=== PATIENT | female | born 1935 | race Caucasian/White ===

== ENCOUNTER 2020-04-22 11:31 | Emergency (ER) | payer MEDICARE ==
[~2020-04-22] VITALS: Ht 160 cm; Wt 70.5 kg
[~2020-04-22 11:31] MED LIST: ASPI-845 PO; ATOR10TA PO; DOCU100C40 PO; FLAX100032 PO; GLUC1CAP33 PO; HYDR-3972 PO; LISI10TA4 PO; METO50TA16 PO; MULT-620 PO; VITA-134 PO
[2020-04-22] MEDS ORDERED: LIDOcaine 5% patch TP STA ×2 (11:47→13:00)
[2020-04-22] MEDS ORDERED: ketorolac trometh. 30mg/ml inj. IM ONE ×2 (11:50→13:00)
[2020-04-22] MEDS ORDERED: cyclobenzaprine 10mg tablet PO ONE (11:50)
--- NOTE | 2020-04-22 12:09 | NUR ---
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
[2020-04-22] MEDS ORDERED: IBUP-1984 PO (12:33)
[2020-04-22] MEDS ORDERED: LIDO700A32 TOP (12:33)
[2020-04-22 12:50] VITALS: BP 171/81
--- NOTE | 2020-04-22 13:00 | NUR ---
Pt having RLE pain and spasms when attempting to sit on side of bed to get to wheelchair. Tho GREGG aware.
== END 2020-04-22 13:40 | disposition home or self-care (01) ==
LOC: ER 11:32
DX: M54.41 Lumbago with sciatica, right side (principal); M79.651 Pain in right thigh; Z79.82 Long term (current) use of aspirin; Z79.899 Other long term (current) drug therapy; X50.1XXA Overexertion from prolonged static or awkward postures, initial encounter; Y93.89 Activity, other specified; Y92.89 Other specified places as the place of occurrence of the external cause; Y99.8 Other external cause status
CPT/HCPCS: 96372; 99284; J1885

== ENCOUNTER 2020-10-28 18:44 | Emergency (ER) | payer MEDICARE ==
[~2020-10-28] VITALS: Ht 162.6 cm; Wt 68.1 kg
[~2020-10-28 18:44] MED LIST changes: +LIDO700A32 TOP; +LISI10TA27 PO; -LISI10TA4 PO
[2020-10-28 19:51] VITALS: BP 155/76
== END 2020-10-28 23:15 | disposition home or self-care (01) ==
LOC: ER 18:45
DX: S22.31XA Fracture of one rib, right side, initial encounter for closed fracture (principal); M79.601 Pain in right arm; M79.602 Pain in left arm; M54.9 Dorsalgia, unspecified; Z79.82 Long term (current) use of aspirin; Z79.899 Other long term (current) drug therapy; Z98.890 Other specified postprocedural states; W01.0XXA Fall on same level from slipping, tripping and stumbling without subsequent striking against object, initial encounter; Y93.89 Activity, other specified; Y92.89 Other specified places as the place of occurrence of the external cause; Y99.8 Other external cause status
CPT/HCPCS: 71045; 71100; 73030; 99284

== ENCOUNTER 2021-05-27 12:35 | Emergency (ER) | payer MEDICARE ==
[~2021-05-27] VITALS: Ht 162.6 cm; Wt 68.2 kg
[2021-05-27 14:04] LABS: BASOPHILS % (AUTO) 0.3 % (0-1); EOSINOPHILS % (AUTO) 0.3 % (0-6); HEMATOCRIT 42.1 % (35.0-45.0); HEMOGLOBIN 14.1 g/dl (12.0-16.0); LYMPHOCYTES # (AUTO) 1.2 X10'3 (1.1-4.8); LYMPHOCYTES % (AUTO) 13.8 % (21-51); MEAN CORPUSCULAR HEMOGLOBIN 32.3 PG (27.0-31.0); MEAN CORPUSCULAR HGB CONC 33.4 g/dL (33.0-36.5); MEAN CORPUSCULAR VOLUME 96.7 FL (78-98); MEAN PLATELET VOLUME 9.1 FL (7.4-10.4); MONOCYTES # (AUTO) 0.5 X10'3 (0-0.9); MONOCYTES % (AUTO) 5.6 % (2-12); NEUTROPHILS # (AUTO) 6.8 X10'3 (1.8-7.7); PLATELET COUNT 224 X10'3 (140-440); RED BLOOD COUNT 4.35 X10'6 (4.20-5.60); RED CELL DISTRIBUTION WIDTH 12.6 % (11.5-14.5); WHITE BLOOD COUNT 8.4 X10'3 (4.5-11.0)
[2021-05-27 14:16] LABS: ALANINE AMINOTRANSFERASE 15 U/L (12-78); ALBUMIN/GLOBULIN RATIO 1.2 (1.1-1.5); ANION GAP 9 (8-16); ASPARTATE AMINO TRANSFERASE 20 U/L (10-37); BILIRUBIN,TOTAL 0.8 MG/DL (0.1-1.0); BLOOD UREA NITROGEN 28 MG/DL (7-18); BUN/CREATININE RATIO 28.9 (6.6-38.0); CALCIUM 9.8 MG/DL (8.5-10.1); CHLORIDE 105 MMOL/L (99-107); CREATININE 0.97 MG/DL (0.40-0.90); GLUCOSE 107 MG/DL (70-104); POTASSIUM 4.3 MMOL/L (3.5-5.1); SODIUM 142 MMOL/L (135-145); TOTAL CARBON DIOXIDE 27.8 MMOL/L (24-32); TOTAL PROTEIN 7.4 G/DL (6.4-8.2); eGFR 55 ML/MIN
[2021-05-27 14:19] LABS: CLARITY,URINE SLIGHTLY CLOUDY (Clear); COLOR,URINE YELLOW (Yellow); GLUCOSE, URINE NEGATIVE (Neg); KETONES,URINE NEGATIVE (Neg); LEUKOCYTE ESTERASE ,URINE NEGATIVE (Neg); NITRITES, URINE NEGATIVE (Neg); OCCULT BLOOD,URINE SMALL (Neg); PH,URINE 5.5 (4.8-8.0); PROTEIN,URINE NEGATIVE (Neg); UA COLLECTION TYPE CLN CATCH MIDSTREAM; UROBILINOGEN,URINE 0.2 E.U/dL (0.2-1.0)
[2021-05-27 14:26] LABS: WBC,URINE 0-4 /HPF (0-4)
[2021-05-27 14:27] LABS: BACTERIA,URINE FEW /HPF (Neg); MUCUS STRANDS FEW /LPF (Neg); SQUAMOUS EPITHELIAL CELL,UR FEW /LPF (FEW); TRANSITIONAL EPI CELLS,URINE FEW /HPF
--- NOTE | 2021-05-27 15:41 | NUR ---
dr. tong at bedside.
--- NOTE | 2021-05-27 16:41 | NUR ---
lab at bedside.
[2021-05-27 17:15] VITALS: BP 158/82
--- NOTE | 2021-05-27 17:25 | NUR ---
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
== END 2021-05-27 17:40 | disposition left against medical advice (07) ==
LOC: ER 12:36
DX: S52.501A Unspecified fracture of the lower end of right radius, initial encounter for closed fracture (principal); R55 Syncope and collapse; R42 Dizziness and giddiness; R51.9 Headache, unspecified; Z79.82 Long term (current) use of aspirin; Z91.018 Allergy to other foods; Z79.899 Other long term (current) drug therapy; X58.XXXA Exposure to other specified factors, initial encounter; Y93.E8 Activity, other personal hygiene; Y92.89 Other specified places as the place of occurrence of the external cause; Y99.8 Other external cause status
CPT/HCPCS: 36415; 70450; 71045; 73110; 80053; 81001; 82948; 84484; 85025; 93005; 99285

== ENCOUNTER 2022-04-17 05:48 | Day surgery (SDC) | payer MEDICARE, OTHER ==
[2022-04-11 15:33] LABS: BASOPHILS % (AUTO) 0.6 % (0-1); EOSINOPHILS # (AUTO) 0.1 X10'3 (0-0.9); EOSINOPHILS % (AUTO) 1.6 % (0-6); LYMPHOCYTES # (AUTO) 1.8 X10'3 (1.1-4.8); LYMPHOCYTES % (AUTO) 29.2 % (21-51); MEAN CORPUSCULAR HEMOGLOBIN 32.1 PG (27.0-31.0); MEAN CORPUSCULAR HGB CONC 33.8 g/dL (33.0-36.5); MEAN CORPUSCULAR VOLUME 94.8 FL (78-98); MEAN PLATELET VOLUME 9.5 FL (7.4-10.4); MONOCYTES # (AUTO) 0.4 X10'3 (0-0.9); MONOCYTES % (AUTO) 6.8 % (2-12); NEUTROPHILS # (AUTO) 3.8 X10'3 (1.8-7.7); NEUTROPHILS % (AUTO) 61.8 % (42-75); PRE OP HEMATOCRIT 41.4 % (35.0-45.0); PRE OP PLATELET COUNT 204 X10'3 (140-440); RED BLOOD COUNT 4.36 X10'6 (4.20-5.60); RED CELL DISTRIBUTION WIDTH 13.1 % (11.5-14.5)
[2022-04-11 15:37] LABS: CLARITY,URINE SLIGHTLY CLOUDY (Clear); COLOR,URINE YELLOW (Yellow); GLUCOSE, URINE NEGATIVE (Neg); KETONES,URINE NEGATIVE (Neg); LEUKOCYTE ESTERASE ,URINE TRACE (Neg); NITRITES, URINE NEGATIVE (Neg); OCCULT BLOOD,URINE TRACE-INTACT (Neg); PROTEIN,URINE NEGATIVE (Neg); UROBILINOGEN,URINE 0.2 E.U/dL (0.2-1.0)
[2022-04-11 15:38] LABS: UA COLLECTION TYPE NON-SPECIFIED
[2022-04-11 15:48] LABS: SQUAMOUS EPITHELIAL CELL,UR FEW /LPF (FEW)
[2022-04-11 15:49] LABS: TRANSITIONAL EPI CELLS,URINE FEW /HPF
[2022-04-11 15:50] LABS: BACTERIA,URINE FEW /HPF (Neg); MUCUS STRANDS NONE SEEN /LPF (Neg); RBC,URINE 0-2 /HPF (0-2); WBC,URINE 0-4 /HPF (0-4)
[2022-04-11 15:55] LABS: ALBUMIN 3.9 G/DL (3.4-5.0); ALKALINE PHOSPHATASE 62 IU/L (46-116); BLOOD UREA NITROGEN 20 MG/DL (7-18); CHLORIDE 106 MMOL/L (99-107); PRE OP ANION GAP 5 (8-16); PRE OP BILIRUB, TOTAL 0.9 MG/DL (0.0-1.0); PRE OP SODIUM 141 MMOL/L (135-145); TOTAL CARBON DIOXIDE 29.7 MMOL/L (24-32); eGFR 53 ML/MIN
[2022-04-11 16:10] LABS: ALBUMIN/GLOBULIN RATIO 1.2 (1.1-1.5); TOTAL PROTEIN 7.1 G/DL (6.4-8.2)
[2022-04-11 16:20] LABS: PRE OP AST 28 U/L (10-37)
[2022-04-11 16:28] LABS: PRE OP GLUCOSE 102 MG/DL (70-104); PRE OP POTASSIUM 4.5 MMOL/L (3.4-5.1)
[~2022-04-17] VITALS: Ht 165.1 cm; Wt 70.9 kg
[2022-04-17] VITALS (14 sets, daily range): BP systolic 147–195; BP diastolic 79–100
[~2022-04-17 05:48] MED LIST changes: -ATOR10TA PO; -DOCU100C40 PO; +DOCUMENT DATE & TIME OF BETA-BLOCKER PO ONE; -FLAX100032 PO; -GLUC1CAP33 PO; -HYDR-3972 PO; -LIDO700A32 TOP; -LISI10TA27 PO; +METO25TA6; -METO50TA16 PO; -MULT-620 PO; -VITA-134 PO; +ceFAZolin/D5W- 1GM premix 50 ML IV ONE; +famotidine 20mg tablet PO ONE; +ringers solution, lacted 1,000 ML IV SCH
[2022-04-17] MEDS ORDERED: glycopyrrolate 0.2mg/ml inj ONE (07:25)
[2022-04-17] MEDS ORDERED: dexamethasone sod phosphate 10mg/ml inj ONE (07:25)
[2022-04-17] MEDS ORDERED: sevoflurane 250ml liquid IH ONE (07:25)
[2022-04-17] MEDS ORDERED: neostigmine methylsulfate 1 MG/ML 10ml vial ONE (07:25)
[2022-04-17] MEDS ORDERED: rocuronium 10mg/ml inj IV ONE (07:25)
[2022-04-17] MEDS ORDERED: ondansetron/PF 4mg/2ml inj ONE (07:25)
[2022-04-17] MEDS ORDERED: FENTANYL CITRATE/PF 50 MCG/1 ML VIAL ONE (07:31)
[2022-04-17] MEDS ORDERED: midazolam 1 mg/ML 2ml injection ONE (07:32)
[2022-04-17] MEDS ORDERED: propofol inj 20 ML IV ONE (07:33)
[2022-04-17] MEDS ORDERED: LIDOcaine 2% (20mg/ml) 5ml vial ONE (07:33)
[2022-04-17] MEDS ORDERED: morphine 2 MG/ML inj. syringe IV PRN (08:10)
[2022-04-17] MEDS ORDERED: ringers solution, lacted 1,000 ML IV SCH (08:10)
[2022-04-17] MEDS ORDERED: proCHLORperazine 10 MG/2 ml inj IV PRN (08:10)
[2022-04-17] MEDS ORDERED: meperidine/PF 25mg/ml syringe IV PRN ×3 (08:10)
[2022-04-17] MEDS ORDERED: morphine 4 MG/ML inj SYRINge IV PRN (08:10)
[2022-04-17] MEDS ORDERED: ondansetron/PF 4mg/2ml inj IV PRN (08:10)
--- NOTE | 2022-04-17 08:51 | NUR ---
Received from OR via valentino , accompanied by Anesthesiologist dr brown and report given by Anesthesiolgist. PT PRESNS WITH PIC 210G RIGHT WRIST, ELDER CATHETER IN PLACE, VSS. Addendum: 04/17/22 at 0916 by Ling Louie RN, RN Amended: Links added.
[2022-04-17] MEDS ORDERED: labetalol 20mg/4ml (5mg/ml) syringe IV PRN (10:10)
--- NOTE | 2022-04-17 10:51 | NUR ---
I HAVE REVIEWED D/C INSTRUCTIONS WITH PATIENT AND THEY HAVE VERBALIZED UNDERSTANDING OF INSTRUCTIONS. PATIENT D/C HOME WITH ALL BELONGINGS AND FAMILY GAVE TRANSPORT Addendum: 04/17/22 at 1100 by Ling Louie RN, RN Amended: Links added.
--- NOTE | 2022-04-17 10:51 | NUR ---
PT GIVEN ELDER CATH CARE INSTRUCTIONS WITH EXTRA GLOVES AND SURE STEP ELDER CARE WIPES. PT ADVISED FC TO COME OUT IN [address] LOCKETT OFFICE. PTHAD 650MLS OUTPUT IN ELDER CATH. Addendum: 04/17/22 at 1103 by Ling Louie RN, RN Amended: Links added.
== END 2022-04-17 10:51 | disposition home or self-care (01) ==
LOC: PAS 05:48
PROVIDERS: ATTEND Student in an Organized Health Care Education/Training Program
DX: C67.8 Malignant neoplasm of overlapping sites of bladder (principal); Z79.899 Other long term (current) drug therapy; Z98.890 Other specified postprocedural states; Z79.82 Long term (current) use of aspirin
CPT/HCPCS: 36415; 52234; 80053; 81001; 82948; 85025; 87088; 93005; J0690; J1100; J2250; J2405; J2704; J2710; J3010; J3490; J7120; Z7506; Z7508; Z7512

== ENCOUNTER 2022-10-28 08:32 | Day surgery (SDC) | payer MEDICARE, OTHER ==
[~2022-10-28] VITALS: Ht 162.6 cm; Wt 68.3 kg
[2022-10-28] VITALS (17 sets, daily range): BP systolic 120–194; BP diastolic 60–111
[~2022-10-28 08:32] MED LIST changes: -DOCUMENT DATE & TIME OF BETA-BLOCKER PO ONE; -ceFAZolin/D5W- 1GM premix 50 ML IV ONE; -famotidine 20mg tablet PO ONE; -ringers solution, lacted 1,000 ML IV SCH
[2022-10-28] MEDS ORDERED: ASPI-1265 PO (09:02)
[2022-10-28 09:24] LABS: BASOPHILS % (AUTO) 0.5 % (0-1); EOSINOPHILS # (AUTO) 0.1 X10'3 (0-0.9); EOSINOPHILS % (AUTO) 1.2 % (0-6); HEMOGLOBIN 12.4 g/dl (12.0-16.0); LYMPHOCYTES # (AUTO) 1.4 X10'3 (1.1-4.8); LYMPHOCYTES % (AUTO) 19.9 % (21-51); MEAN CORPUSCULAR HEMOGLOBIN 30.7 PG (27.0-31.0); MEAN CORPUSCULAR HGB CONC 32.6 g/dL (33.0-36.5); MEAN CORPUSCULAR VOLUME 94.3 FL (78-98); MEAN PLATELET VOLUME 8.5 FL (7.4-10.4); MONOCYTES # (AUTO) 0.5 X10'3 (0-0.9); MONOCYTES % (AUTO) 7.5 % (2-12); NEUTROPHILS # (AUTO) 5.1 X10'3 (1.8-7.7); NEUTROPHILS % (AUTO) 70.9 % (42-75); PLATELET COUNT 249 X10'3 (140-440); RED BLOOD COUNT 4.03 X10'6 (4.20-5.60); RED CELL DISTRIBUTION WIDTH 13.5 % (11.5-14.5); WHITE BLOOD COUNT 7.2 X10'3 (4.5-11.0)
[2022-10-28] MEDS ORDERED: midazolam 1 mg/ML 2ml injection ONE (10:39)
[2022-10-28] MEDS ORDERED: gelatin sponge, absorbable (Gelfoam 12-7MM) sponge TP ONE (10:39)
[2022-10-28] MEDS ORDERED: fentaNYL/PF 50MCG/1 ML 2ML syringe ONE (10:39)
[2022-10-28] MEDS ORDERED: HYDROcodone/acetaminophen 5mg/325mg tablet PO PRN ×2 (11:45)
== END 2022-10-28 15:00 | disposition home or self-care (01) ==
LOC: SSTAY O 08:32
PROVIDERS: ATTEND Radiology Vascular & Interventional Radiology
DX: R91.1 Solitary pulmonary nodule (principal); C78.01 Secondary malignant neoplasm of right lung; C51.9 Malignant neoplasm of vulva, unspecified; J44.9 Chronic obstructive pulmonary disease, unspecified; Z79.82 Long term (current) use of aspirin; Z79.899 Other long term (current) drug therapy; Z95.1 Presence of aortocoronary bypass graft; Z98.890 Other specified postprocedural states; Z72.89 Other problems related to lifestyle
CPT/HCPCS: 32408; 36415; 71045; 85025; 85610; 99152; 99153; C1769; J2250; J3010; J7030; 77012; A4421; A4615; A6258

== ENCOUNTER 2022-11-06 15:30 | Inpatient (IN) | payer MEDICARE, OTHER ==
[~2022-11-06] VITALS: Ht 162.6 cm; Wt 63.6 kg
[2022-11-06 00:15] VITALS: BP 91/49; PULSE 83; TEMP 95.8; O2SAT 93
[~2022-11-06 15:30] MED LIST changes: +ASPI-1265 PO; -ASPI-845 PO
[2022-11-06] MEDS ORDERED: normal saline 1000ML IV soln IVB ONE (15:55)
[2022-11-06] MEDS ORDERED: morphine 4 MG/ML inj SYRINge IV ONE ×3 (15:55→17:20)
[2022-11-06] MEDS ORDERED: ondansetron/PF 4mg/2ml inj IV ONE (15:55)
[2022-11-06 17:00] LABS: BASOPHILS % (AUTO) 0.3 % (0-1); EOSINOPHILS # (AUTO) 0.1 X10'3 (0-0.9); EOSINOPHILS % (AUTO) 0.6 % (0-6); HEMATOCRIT 35.8 % (35.0-45.0); HEMOGLOBIN 11.8 g/dl (12.0-16.0); LYMPHOCYTES # (AUTO) 0.6 X10'3 (1.1-4.8); LYMPHOCYTES % (AUTO) 5.4 % (21-51); MEAN CORPUSCULAR HEMOGLOBIN 31.1 PG (27.0-31.0); MEAN CORPUSCULAR VOLUME 94.3 FL (78-98); MEAN PLATELET VOLUME 8.8 FL (7.4-10.4); MONOCYTES % (AUTO) 0.5 % (2-12); NEUTROPHILS # (AUTO) 9.4 X10'3 (1.8-7.7); NEUTROPHILS % (AUTO) 93.2 % (42-75); PLATELET COUNT 234 X10'3 (140-440); RED BLOOD COUNT 3.79 X10'6 (4.20-5.60); RED CELL DISTRIBUTION WIDTH 13.6 % (11.5-14.5); WHITE BLOOD COUNT 10.1 X10'3 (4.5-11.0)
[2022-11-06 17:17] LABS: ALANINE AMINOTRANSFERASE 12 U/L (12-78); ALBUMIN 3.4 G/DL (3.4-5.0); ALKALINE PHOSPHATASE 66 IU/L (46-116); ANION GAP 10 (8-16); ASPARTATE AMINO TRANSFERASE 25 U/L (10-37); BILIRUBIN,TOTAL 0.8 MG/DL (0.1-1.0); BLOOD UREA NITROGEN 23 MG/DL (7-18); BUN/CREATININE RATIO 18.9 (10.0-20.0); CHLORIDE 105 MMOL/L (99-107); CREATININE 1.22 MG/DL (0.40-0.90); GLUCOSE 118 MG/DL (70-104); LIPASE 81 U/L (73-393); POTASSIUM 4.5 MMOL/L (3.5-5.1); SODIUM 139 MMOL/L (135-145); TOTAL CARBON DIOXIDE 24.1 MMOL/L (24-32); TOTAL PROTEIN 6.8 G/DL (6.4-8.2); eGFR 42 ML/MIN
[2022-11-06] MEDS ORDERED: iohexol 300mg/ml 100ml inj. ONE (17:21)
--- NOTE | 2022-11-06 18:24 | NUR ---
ASSUMED CARE FROM CATARINA MORGAN
--- NOTE | 2022-11-06 18:50 | NUR ---
DR DOUGLAS NOTIFIED OF HIGH HR AND TEMP FOR POSSIBLE SEPSIS. ALL BLANKETS REMOVED EXECPT 1 SHEET.
[2022-11-06] MEDS ORDERED: piperacillin/tazo 3.375gm/50ml 50 ML IV ONE (19:00)
[2022-11-06 19:10] LABS: CLARITY,URINE CLOUDY (Clear); COLOR,URINE STRAW (Yellow); GLUCOSE, URINE NEGATIVE (Neg); KETONES,URINE TRACE mg/dl (Neg); LEUKOCYTE ESTERASE ,URINE SMALL (Neg); NITRITES, URINE POSITIVE (Neg); OCCULT BLOOD,URINE LARGE (Neg); PH,URINE 6.5 (4.8-8.0); PROTEIN,URINE TRACE mg/dl (Neg); UROBILINOGEN,URINE 0.2 E.U/dL (0.2-1.0)
[2022-11-06 19:13] LABS: UA COLLECTION TYPE FOLEY CATH
[2022-11-06 19:21] LABS: SQUAMOUS EPITHELIAL CELL,UR FEW /LPF (FEW)
[2022-11-06 19:22] LABS: BACTERIA,URINE 3+ /HPF (Neg); RBC,URINE TNTC /HPF (0-2); WBC,URINE 50-100 /HPF (0-4)
[2022-11-06 19:23] LABS: TRANSITIONAL EPI CELLS,URINE FEW /HPF
[2022-11-06] MEDS ORDERED: acetaminophen 325mg tablet PO ONE (19:25)
[2022-11-06] MEDS ORDERED: acetaminophen 325mg tablet PO PRN (20:10)
[2022-11-06] MEDS ORDERED: ondansetron/PF 4mg/2ml inj IV PRN (20:10)
[2022-11-06] MEDS ORDERED: magnesium Cl slow-release 64mg tablet PO PRN (20:10)
[2022-11-06] MEDS ORDERED: magnesium 2GM in 50ml NS 50 ML IV PRN (20:10)
[2022-11-06] MEDS ORDERED: magnesium 4gm in 100ml NS 100 ML IV PRN (20:10)
[2022-11-06] MEDS ORDERED: potassium Cl 20 mEq SR tablet PO PRN ×2 (20:10)
[2022-11-06] MEDS ORDERED: potassium Cl 40MEQ/1/2NS 520ml 520 ML IV PRN (20:10)
[2022-11-06] MEDS: normal saline 1000ml 1,000 ML IV SCH (20:32)
[2022-11-06] MEDS: CefTRIAXone/D5W-Rocephin 1gm 50 ML IV SCH (20:32)
[2022-11-06] MEDS ORDERED: normal saline 500ml IV soln 500 ML IV ONE (23:15)
--- NOTE | 2022-11-06 23:22 | NUR ---
DR GREEN AT BEDSIDE, BP LOW, BOLUS RUNNING. GAVE REPORT TO REGULATORY LEADER AND WILL SEND UPSTAIRS AFTER FLUID BOLUS COMPLETE TO RECHECK BP MAP IS BELOW 65.
[2022-11-07] VITALS (10 sets, daily range): BP systolic 89–146; BP diastolic 46–87; PULSE 74–89; RESP 14–18; TEMP 96.3–98.9; O2SAT 90–98
--- NOTE | 2022-11-07 00:05 | NUR ---
RECIEVED PT REPORT FROM PETE ER NURSE WITH C/O ABDOMINAL PAIN, TRANSFER TO BED AND MADE COMFORTABLE.
[2022-11-07] MEDS: normal saline 1000ml 1,000 ML IV SCH ×3 (02:02→21:21)
--- NOTE | 2022-11-07 06:25 | NUR ---
Problems reprioritized. Patient report given, questions answered & plan of care reviewed with CATARINA OVALLES.
--- NOTE | 2022-11-07 06:27 | NUR ---
Patient in room U 3025. I have received report from Rebeca and had the opportunity to ask questions and assume patient care. Addendum: 11/07/22 at 0628 by Td Leal RN Amended: Links added.
[2022-11-07 06:49] LABS: EOSINOPHILS % (AUTO) 0 % (0-6); HEMOGLOBIN 11.3 g/dl (12.0-16.0); LYMPHOCYTES # (AUTO) 0.4 X10'3 (1.1-4.8); MONOCYTES # (AUTO) 0.3 X10'3 (0-0.9)
[2022-11-07 06:52] LABS: BASOPHILS % (AUTO) 0 % (0-1); HEMATOCRIT 34.7 % (35.0-45.0); LYMPHOCYTES % (AUTO) 2.1 % (21-51); MEAN CORPUSCULAR HEMOGLOBIN 31.1 PG (27.0-31.0); MEAN CORPUSCULAR HGB CONC 32.6 g/dL (33.0-36.5); MEAN CORPUSCULAR VOLUME 95.4 FL (78-98); MEAN PLATELET VOLUME 8.7 FL (7.4-10.4); MONOCYTES % (AUTO) 1.7 % (2-12); NEUTROPHILS # (AUTO) 18.2 X10'3 (1.8-7.7); NEUTROPHILS % (AUTO) 96.2 % (42-75); PLATELET COUNT 138 X10'3 (140-440); RED BLOOD COUNT 3.64 X10'6 (4.20-5.60); WHITE BLOOD COUNT 18.9 X10'3 (4.5-11.0)
[2022-11-07 06:56] LABS: ALBUMIN 2.6 G/DL (3.4-5.0); ANION GAP 14 (8-16); BLOOD UREA NITROGEN 26 MG/DL (7-18); BUN/CREATININE RATIO 12.1 (10.0-20.0); CALCIUM 8.4 MG/DL (8.5-10.1); CHLORIDE 104 MMOL/L (99-107); CREATININE 2.15 MG/DL (0.40-0.90); GLUCOSE 121 MG/DL (70-104); MAGNESIUM 1.6 MG/DL (1.5-2.4); POTASSIUM 4.1 MMOL/L (3.5-5.1); SODIUM 140 MMOL/L (135-145); TOTAL CARBON DIOXIDE 22.5 MMOL/L (24-32); eGFR 22 ML/MIN
[2022-11-07] MEDS: K and/or MAG REPLACEMENT MC SCH ×2 (07:08→19:25)
[2022-11-07] MEDS: CefTRIAXone/D5W-Rocephin 1gm 50 ML IV SCH (07:15)
[2022-11-07] MEDS: aspirin 81mg tab.chew PO SCH (07:15)
[2022-11-07 07:29] LABS: PLATELET ESTIMATE DECREASED; TOTAL CELLS COUNTED 100
[2022-11-07 07:30] LABS: ELLIPTOCYTES 1+
[2022-11-07] MEDS ORDERED: non-formulary drug (Metoprolol Tartrate 1 TAB) SCH (08:00)
[2022-11-07] MEDS ORDERED: metoprolol tartrate 25mg tablet PO SCH (08:00)
--- NOTE | 2022-11-07 18:30 | NUR ---
Patient in room PCU 3025. I have received report from JOSR ELMORE and had the opportunity to ask questions and assume patient care.
--- NOTE | 2022-11-07 18:32 | NUR ---
Problems reprioritized. Patient report given, questions answered & plan of care reviewed with Prudence. Addendum: 11/07/22 at 1832 by Td Leal RN Amended: Links added.
[2022-11-08] VITALS (10 sets, daily range): BP systolic 113–157; BP diastolic 59–111; PULSE 64–83; RESP 12–18; TEMP 97.6–98.3; O2SAT 91–99
[2022-11-08] MEDS: normal saline 1000ml 1,000 ML IV SCH ×2 (05:33→17:26)
--- NOTE | 2022-11-08 06:09 | NUR ---
Patient in room U 3025. I have received report from Lorenza and had the opportunity to ask questions and assume patient care. Addendum: 11/08/22 at 0609 by Td Leal RN Amended: Links added.
--- NOTE | 2022-11-08 06:25 | NUR ---
Problems reprioritized. Patient report given, questions answered & plan of care reviewed with JOSR RN.
[2022-11-08 06:35] LABS: EOSINOPHILS # (AUTO) 0.1 X10'3 (0-0.9); HEMATOCRIT 31.3 % (35.0-45.0); HEMOGLOBIN 10.3 g/dl (12.0-16.0); LYMPHOCYTES # (AUTO) 0.5 X10'3 (1.1-4.8); MEAN CORPUSCULAR HGB CONC 32.9 g/dL (33.0-36.5); MONOCYTES # (AUTO) 0.7 X10'3 (0-0.9); MONOCYTES % (AUTO) 3.1 % (2-12); RED BLOOD COUNT 3.31 X10'6 (4.20-5.60)
[2022-11-08 06:37] LABS: BASOPHILS % (AUTO) 0.1 % (0-1); EOSINOPHILS % (AUTO) 0.3 % (0-6); LYMPHOCYTES % (AUTO) 2.2 % (21-51); MEAN CORPUSCULAR HEMOGLOBIN 31.2 PG (27.0-31.0); MEAN CORPUSCULAR VOLUME 94.7 FL (78-98); MEAN PLATELET VOLUME 9.4 FL (7.4-10.4); NEUTROPHILS % (AUTO) 94.3 % (42-75); PLATELET COUNT 119 X10'3 (140-440); RED CELL DISTRIBUTION WIDTH 14.1 % (11.5-14.5); WHITE BLOOD COUNT 23.3 X10'3 (4.5-11.0)
[2022-11-08 06:44] LABS: ALBUMIN 2.3 G/DL (3.4-5.0); ANION GAP 13 (8-16); BLOOD UREA NITROGEN 26 MG/DL (7-18); BUN/CREATININE RATIO 19.3 (10.0-20.0); CALCIUM 8.6 MG/DL (8.5-10.1); CHLORIDE 108 MMOL/L (99-107); CREATININE 1.35 MG/DL (0.40-0.90); GLUCOSE 108 MG/DL (70-104); MAGNESIUM 1.9 MG/DL (1.5-2.4); SODIUM 141 MMOL/L (135-145); TOTAL CARBON DIOXIDE 20.1 MMOL/L (24-32); eGFR 37 ML/MIN
[2022-11-08] MEDS: K and/or MAG REPLACEMENT MC SCH ×2 (06:59→20:00)
[2022-11-08 07:23] LABS: PLATELET ESTIMATE DECREASED; TOTAL CELLS COUNTED 100
[2022-11-08] MEDS: CefTRIAXone 2gm/D5W 50ml BAG 50 ML IV SCH (07:30)
[2022-11-08] MEDS: aspirin 81mg tab.chew PO SCH (07:30)
--- NOTE | 2022-11-08 09:49 | NUR ---
Pt fell from recliner chair. Tabs had been on, did not go off until in process of fall. Denies injuries, no signs of injury. made aware
--- NOTE | 2022-11-08 09:49 | NUR ---
PAGER ID: [phone] MESSAGE: [id number] a fall, did not hit head, no apparent injuries. Has been gradually getting more confused from around 1700 last night-Td
--- NOTE | 2022-11-08 13:04 | NUR ---
Nutrition consult: Pt admit for sepsis and left side pyelonephritis with UTI. Currently on a heart healthy diet and eating fairly well for age, documented with average 56% PO intake though given increased protein needs d/t sepsis average PO intake is meeting 78% estimated energy needs and 57% estimated protein needs. Recommend Ensure Enlive BID to assist with meeting estimated nutrient needs, to be sent upon physician approval in EMR. IF pt continues with current average meal intake and with average 90% PO intake of ONS BID this will meet 100% of patient's estimated nutrient needs. Noted pt documented to be A/O x 3 and confused this morning, pt may benefit from assistance with meals. LBM 11/08 per EMR. Will continue to follow and monitor need for further nutrition intervention. Recommendations: 1) Liberalize to regular diet given geriatric age 2) Ensure Enlive BIDBD, pending physician approval in EMR 3) Monitor need for meal assistance given confusion 4) Bowel care PRN 5) Scaled weight this admit; subsequent weekly scaled weights Addendum: 11/08/22 at [address] Amended: Links added.
[2022-11-08 15:36] LABS: OCCULT BLOOD STOOL NEGATIVE (Neg)
[2022-11-08] MEDS: lactose-reduced food (Ensure Enlive) - 237ml bottle PO SCH (17:30)
--- NOTE | 2022-11-08 18:30 | NUR ---
Patient in room PCU 3025. I have received report from masr ELMORE and had the opportunity to ask questions and assume patient care.
[2022-11-09] VITALS (7 sets, daily range): BP systolic 151–171; BP diastolic 69–92; PULSE 56–79; RESP 16–21; TEMP 97–98.1; O2SAT 92–95
[2022-11-09] MEDS: normal saline 1000ml 1,000 ML IV SCH ×2 (02:38→21:17)
--- NOTE | 2022-11-09 03:40 | NUR ---
Student documentation: I have reviewed and agree with assessment performed and documented by PEDRO Green[].
--- NOTE | 2022-11-09 06:21 | NUR ---
Problems reprioritized. Patient report given, questions answered & plan of care reviewed with shaheen underwood.
[2022-11-09 06:28] LABS: BASOPHILS % (AUTO) 0.2 % (0-1); EOSINOPHILS # (AUTO) 0.6 X10'3 (0-0.9); EOSINOPHILS % (AUTO) 2.1 % (0-6); HEMATOCRIT 32.3 % (35.0-45.0); HEMOGLOBIN 10.7 g/dl (12.0-16.0); LYMPHOCYTES % (AUTO) 3.4 % (21-51); MEAN CORPUSCULAR HEMOGLOBIN 31.1 PG (27.0-31.0); MEAN CORPUSCULAR HGB CONC 33.2 g/dL (33.0-36.5); MEAN CORPUSCULAR VOLUME 93.8 FL (78-98); MONOCYTES # (AUTO) 0.6 X10'3 (0-0.9); NEUTROPHILS % (AUTO) 92.3 % (42-75); PLATELET COUNT 119 X10'3 (140-440); RED BLOOD COUNT 3.44 X10'6 (4.20-5.60); RED CELL DISTRIBUTION WIDTH 14.3 % (11.5-14.5)
[2022-11-09 06:41] LABS: ALBUMIN 2.2 G/DL (3.4-5.0); ANION GAP 11 (8-16); BLOOD UREA NITROGEN 19 MG/DL (7-18); BUN/CREATININE RATIO 20.2 (10.0-20.0); CALCIUM 8.7 MG/DL (8.5-10.1); CHLORIDE 108 MMOL/L (99-107); CREATININE 0.94 MG/DL (0.40-0.90); GLUCOSE 102 MG/DL (70-104); MAGNESIUM 1.8 MG/DL (1.5-2.4); POTASSIUM 3.5 MMOL/L (3.5-5.1); SODIUM 139 MMOL/L (135-145); TOTAL CARBON DIOXIDE 19.6 MMOL/L (24-32); eGFR 56 ML/MIN
[2022-11-09 06:44] LABS: WHITE BLOOD COUNT 30.3 X10'3 (4.5-11.0)
--- NOTE | 2022-11-09 06:54 | NUR ---
Patient in room PCU 3025. I have received report from [facility] and had the opportunity to ask questions and assume patient care.
[2022-11-09] MEDS: lactose-reduced food (Ensure Enlive) - 237ml bottle PO SCH ×2 (07:30→19:40)
--- NOTE | 2022-11-09 07:30 | NUR ---
Sent to Dr Penn -[id number] [facility] Critical Lab Value WBC 30.3 Natasha [phone]
[2022-11-09 07:39] LABS: PLATELET ESTIMATE DECREASED; TOTAL CELLS COUNTED 100
[2022-11-09 07:40] LABS: BURR CELLS 1+; SCHISTOCYTES FEW
[2022-11-09] MEDS: K and/or MAG REPLACEMENT MC SCH ×2 (08:00→20:00)
[2022-11-09] MEDS: CefTRIAXone 2gm/D5W 50ml BAG 50 ML IV SCH (08:29)
[2022-11-09] MEDS: aspirin 81mg tab.chew PO SCH (08:49)
--- NOTE | 2022-11-09 17:09 | NUR ---
AGREE WITH WOUND CARE PHYSICIAN AM ASSESSMENT
--- NOTE | 2022-11-09 18:14 | NUR ---
Problems reprioritized. Patient report given, questions answered & plan of care reviewed with Clau ELMORE.
[2022-11-09] MEDS ORDERED: amLODIPine 5mg tablet PO ONE (18:45)
[2022-11-10] VITALS (8 sets, daily range): BP systolic 144–173; BP diastolic 68–84; PULSE 62–76; RESP 16–21; TEMP 97.6–98.1; O2SAT 94–99
[2022-11-10 06:02] LABS: BASOPHILS % (AUTO) 0.1 % (0-1); EOSINOPHILS # (AUTO) 0.3 X10'3 (0-0.9); EOSINOPHILS % (AUTO) 1.5 % (0-6); HEMOGLOBIN 11.3 g/dl (12.0-16.0); LYMPHOCYTES # (AUTO) 1.1 X10'3 (1.1-4.8); LYMPHOCYTES % (AUTO) 5.3 % (21-51); MEAN CORPUSCULAR HGB CONC 33.2 g/dL (33.0-36.5); MEAN CORPUSCULAR VOLUME 93.2 FL (78-98); MEAN PLATELET VOLUME 9.9 FL (7.4-10.4); MONOCYTES # (AUTO) 0.9 X10'3 (0-0.9); MONOCYTES % (AUTO) 4.4 % (2-12); NEUTROPHILS # (AUTO) 18.9 X10'3 (1.8-7.7); NEUTROPHILS % (AUTO) 88.7 % (42-75); PLATELET COUNT 128 X10'3 (140-440); RED BLOOD COUNT 3.65 X10'6 (4.20-5.60); RED CELL DISTRIBUTION WIDTH 14.5 % (11.5-14.5); WHITE BLOOD COUNT 21.3 X10'3 (4.5-11.0)
--- NOTE | 2022-11-10 06:08 | NUR ---
Patient in room PCU 3025. I have received report from Clau ELMORE and had the opportunity to ask questions and assume patient care.
[2022-11-10 06:11] LABS: ALBUMIN 2.1 G/DL (3.4-5.0); ANION GAP 11 (8-16); BLOOD UREA NITROGEN 13 MG/DL (7-18); BUN/CREATININE RATIO 17.8 (10.0-20.0); C-REACTIVE PROTEIN 10.56 MG/DL (0.0-0.5); CHLORIDE 110 MMOL/L (99-107); CREATININE 0.73 MG/DL (0.40-0.90); GLUCOSE 85 MG/DL (70-104); MAGNESIUM 1.5 MG/DL (1.5-2.4); POTASSIUM 3.2 MMOL/L (3.5-5.1); SODIUM 142 MMOL/L (135-145); TOTAL CARBON DIOXIDE 21.2 MMOL/L (24-32); eGFR 76 ML/MIN
[2022-11-10 06:59] LABS: CALCIUM 8.4 MG/DL (8.5-10.1)
[2022-11-10] MEDS: CefTRIAXone 2gm/D5W 50ml BAG 50 ML IV SCH (07:19)
[2022-11-10 07:59] LABS: PLATELET ESTIMATE DECREASED; TOTAL CELLS COUNTED 100
[2022-11-10] MEDS ORDERED: amLODIPine 5mg tablet PO SCH (08:00)
[2022-11-10] MEDS: K and/or MAG REPLACEMENT MC SCH ×2 (08:00→20:00)
[2022-11-10] MEDS: lactose-reduced food (Ensure Enlive) - 237ml bottle PO SCH ×2 (08:38→17:46)
[2022-11-10] MEDS: aspirin 81mg tab.chew PO SCH (08:39)
[2022-11-10] MEDS: normal saline 1000ml 1,000 ML IV SCH ×2 (08:40→18:54)
[2022-11-10] MEDS ORDERED: potassium Cl 20 mEq SR tablet PO PRN (09:30)
[2022-11-10] MEDS ORDERED: magnesium Cl slow-release 64mg tablet PO PRN (09:30)
[2022-11-10] MEDS: potassium Cl 20 mEq SR tablet PO PRN ×3 (10:12→18:55)
--- NOTE | 2022-11-10 11:25 | NUR ---
AGREE WITH CLOTH GRADER AM ASSESSMENT
--- NOTE | 2022-11-10 18:10 | NUR ---
Problems reprioritized. Patient report given, questions answered & plan of care reviewed with Juice.
[2022-11-10] MEDS ORDERED: hydrALAZINE 20mg/ml inj. IV PRN (19:50)
[2022-11-10] MEDS ORDERED: enoxaparin 40mg/0.4ml syringe SUBCUT SCH (20:00)
[2022-11-10] MEDS: metoprolol tartrate 12.5mg (1/2 tablet) PO SCH (20:00)
[2022-11-11 02:00] VITALS: BP 169/71; PULSE 68; RESP 17; TEMP 98.2; O2SAT 97
[2022-11-11 06:00] VITALS: BP 181/92; PULSE 76; RESP 16; TEMP 97.3; O2SAT 96
--- NOTE | 2022-11-11 06:30 | NUR ---
Patient in room PCU 3025. I have received report from janet ELMORE and had the opportunity to ask questions and assume patient care.
[2022-11-11 07:05] LABS: BASOPHILS # (AUTO) 0.1 X10'3 (0-0.2); BASOPHILS % (AUTO) 0.8 % (0-1); EOSINOPHILS # (AUTO) 0.4 X10'3 (0-0.9); HEMATOCRIT 36.1 % (35.0-45.0); LYMPHOCYTES # (AUTO) 1.4 X10'3 (1.1-4.8); LYMPHOCYTES % (AUTO) 14.9 % (21-51); MEAN CORPUSCULAR HEMOGLOBIN 30.9 PG (27.0-31.0); MEAN CORPUSCULAR HGB CONC 33.3 g/dL (33.0-36.5); MEAN CORPUSCULAR VOLUME 92.6 FL (78-98); MEAN PLATELET VOLUME 9.5 FL (7.4-10.4); MONOCYTES % (AUTO) 10.7 % (2-12); NEUTROPHILS # (AUTO) 6.6 X10'3 (1.8-7.7); NEUTROPHILS % (AUTO) 69.6 % (42-75); PLATELET COUNT 164 X10'3 (140-440); RED CELL DISTRIBUTION WIDTH 14.4 % (11.5-14.5); WHITE BLOOD COUNT 9.5 X10'3 (4.5-11.0)
[2022-11-11 07:20] LABS: ALBUMIN 2.3 G/DL (3.4-5.0); ANION GAP 10 (8-16); BLOOD UREA NITROGEN 13 MG/DL (7-18); CALCIUM 8.9 MG/DL (8.5-10.1); CHLORIDE 108 MMOL/L (99-107); CREATININE 0.81 MG/DL (0.40-0.90); GLUCOSE 91 MG/DL (70-104); POTASSIUM 3.8 MMOL/L (3.5-5.1); SODIUM 141 MMOL/L (135-145); TOTAL CARBON DIOXIDE 23.1 MMOL/L (24-32); eGFR 67 ML/MIN
[2022-11-11] MEDS: lactose-reduced food (Ensure Enlive) - 237ml bottle PO SCH (07:30)
[2022-11-11] MEDS: CefTRIAXone 2gm/D5W 50ml BAG 50 ML IV SCH (07:59)
[2022-11-11] MEDS: K and/or MAG REPLACEMENT MC SCH (08:00)
[2022-11-11] MEDS ORDERED: amLODIPine 5mg tablet PO SCH (08:00)
[2022-11-11] MEDS: metoprolol tartrate 12.5mg (1/2 tablet) PO SCH (08:09)
[2022-11-11] MEDS: aspirin 81mg tab.chew PO SCH (08:09)
[2022-11-11 08:14] LABS: TOTAL CELLS COUNTED 100
[2022-11-11 08:19] LABS: PLATELET ESTIMATE NORMAL
[2022-11-11 08:20] LABS: BURR CELLS FEW; ELLIPTOCYTES FEW; SCHISTOCYTES FEW
[2022-11-11] MEDS ORDERED: AMLO10TA PO (11:18)
[2022-11-11] MEDS ORDERED: LEVO750T68 PO (11:18)
[2022-11-11 12:36] VITALS: BP 165/78; PULSE 76; RESP 17; TEMP 98; O2SAT 96
--- NOTE | 2022-11-11 16:28 | NUR ---
PATIENT DISCHARGE HOME. LEFT ACCOMPANIED BY AND DAUGHTER. EDUCATION PROVIDED TO PATIENT REGARDING PROPPER CATHETER CARE.IV REMOVED. DRESSING CDI. ALL PATIENT BELONGINGS WITH PATIENT.
== END 2022-11-11 14:06 | disposition home health service (06) | DRG 871 ==
LOC: ER 15:30 → ED HOLD 20:19 → PCU 3S 23:36
PROVIDERS: ADMIT Internal Medicine; ATTEND Family Medicine
PROC: BW211ZZ Computerized Tomography (CT Scan) of Abdomen and Pelvis using Low Osmolar Contrast (ICD-10-PCS; principal; 2022-11-06)
DX: A41.51 Sepsis due to Escherichia coli [E. coli] (principal); G93.41 Metabolic encephalopathy; N17.0 Acute kidney failure with tubular necrosis; N13.6 Pyonephrosis; C78.02 Secondary malignant neoplasm of left lung; C78.01 Secondary malignant neoplasm of right lung; D84.9 Immunodeficiency, unspecified; C79.82 Secondary malignant neoplasm of genital organs; C79.51 Secondary malignant neoplasm of bone; C67.9 Malignant neoplasm of bladder, unspecified; I12.9 Hypertensive chronic kidney disease with stage 1 through stage 4 chronic kidney disease, or unspecified chronic kidney disease; N18.9 Chronic kidney disease, unspecified; I25.10 Atherosclerotic heart disease of native coronary artery without angina pectoris; E78.5 Hyperlipidemia, unspecified; E86.0 Dehydration; T83.098A Other mechanical complication of other urinary catheter, initial encounter; Y84.6 Urinary catheterization as the cause of abnormal reaction of the patient, or of later complication, without mention of misadventure at the time of the procedure; Y92.89 Other specified places as the place of occurrence of the external cause; Z87.891 Personal history of nicotine dependence; Z95.1 Presence of aortocoronary bypass graft; Z79.899 Other long term (current) drug therapy; Z92.3 Personal history of irradiation
CPT/HCPCS: 36415; 72170; 74177; 76770; 80048; 80053; 81001; 82272; 83605; 83690; 83735; 84132; 85007; 85025; 86140; 87040; 87077; 87088; 87186; 97116; 97161; 97530; 97535; 99285; A4314; A4358; A4615; G0378; J0696; J1650; J2270; J2405; J2543; J3490; J7030; J7040; Q9967